=== PATIENT | male | born 1985 | race African-American/Black ===

== ENCOUNTER 2016-09-14 19:51 | Emergency (ER) | payer OTHER ==
[~2016-09-14] VITALS: Ht 177.8 cm; Wt 65.4 kg
[~2016-09-14 19:51] MED LIST: BENTYL10 MG PO; LEXAPRO20 MG PO; NAPROSYN500 MG PO; PROMETHAZINE HC25 M1 PO; TAMIFLU75 MG PO; ZOFRAN4 MG PO
[2016-09-14] MEDS ORDERED: ROBITUSSIN AC,T10 ML PO (21:55)
[2016-09-14 22:18] VITALS: BP 135/81
== END 2016-09-14 22:18 | disposition home or self-care (01) ==
LOC: EME 19:51
DX: J06.9 Acute upper respiratory infection, unspecified (principal); J45.909 Unspecified asthma, uncomplicated; F17.200 Nicotine dependence, unspecified, uncomplicated; Q67.6 Pectus excavatum
CPT/HCPCS: 71020; 99281; 99283; J8540

== ENCOUNTER 2016-09-17 09:29 | Emergency (ER) | payer OTHER ==
[~2016-09-17] VITALS: Ht 175.3 cm; Wt 64.6 kg
[~2016-09-17 09:29] MED LIST changes: +ROBITUSSIN AC,T10 ML PO
[2016-09-17 12:25] LABS: HBSG INDEX 0.15
[2016-09-17 12:26] LABS: HIV INDEX 0.09; HIV-1/2 AB/AG COMBO Nonreactive; HPCA INDEX 0.58
[2016-09-17] MEDS ORDERED: TRUVADA 133 MG1 EACH PO (12:51)
[2016-09-17] MEDS ORDERED: ISENTRESS400 MG PO (12:51)
[2016-09-17] MEDS ORDERED: AUGMENTIN875 MG PO (12:51)
[2016-09-17] MEDS ORDERED: TYLENOL WITH C1 EACH PO (12:53)
[2016-09-17] MEDS ORDERED: ILOTYCIN1 GM BOTH EYES (12:55)
[2016-09-17 13:40] VITALS: BP 142/88
== END 2016-09-17 13:40 | disposition home or self-care (01) ==
LOC: EME → EDBD 09:29 → EME 09:29
PROVIDERS: Emergency Medicine
DX: H11.33 Conjunctival hemorrhage, bilateral (principal); S41.112A Laceration without foreign body of left upper arm, initial encounter; S00.211A Abrasion of right eyelid and periocular area, initial encounter; S00.212A Abrasion of left eyelid and periocular area, initial encounter; F17.200 Nicotine dependence, unspecified, uncomplicated; Y04.1XXA Assault by human bite, initial encounter; X99.8XXA Assault by other sharp object, initial encounter
CPT/HCPCS: 86703; 86803; 87340; 99281; 99284

== ENCOUNTER 2017-02-06 00:47 | Observation (INO) | payer OTHER ==
[~2017-02-06] VITALS: Ht 177.8 cm; Wt 68.4 kg
[~2017-02-06 00:47] MED LIST changes: +AUGMENTIN875 MG PO; +ILOTYCIN1 GM BOTH EYES; +ISENTRESS400 MG PO; +TRUVADA 133 MG1 EACH PO; +TYLENOL WITH C1 EACH PO
[2017-02-06 02:48] LABS: HEMATOCRIT 40.1 % (38.0-50.0); MCH 26.6 PG (29.0-34.0); MCHC 31.7 G/DL (30.0-36.0); MCV 83.9 FL (86-99); MEAN PLAT.VOLUME 9.4 uM^3 (9.0-12.4); PLATELET COUNT 228 K/uL (156-360); RBC DIS.WIDTH-CV 13.3 % (11.8-14.6); RBC DIS.WIDTH-SD 40.7 % (39-53); RED BLOOD COUNT 4.78 M/uL (4.00-5.50); WHITE BLOOD COUNT 3.5 K/uL (4.1-10.2)
[2017-02-06 03:06] LABS: CHLORIDE 105 mEq/L (99-109); POTASSIUM 3.9 mEq/L (3.7-5.4); SODIUM 139 mEq/L (136-147)
[2017-02-06 03:07] LABS: GLUCOSE 82 mg/dL (70-99)
[2017-02-06 03:09] LABS: ANION GAP 8 MEQ/L (2-14)
[2017-02-06 03:11] LABS: GFR ESTIMATE (CALCULATED) > 59 mL/min/; TROP-I INTERPRETATION NEGATIVE; TROPONIN-I < 0.01 ng/mL (0.0-0.30)
[2017-02-06 03:12] LABS: UREA NITROGEN (BUN) 15 mg/dL (9-23)
[2017-02-06 03:29] LABS: D-DIMER ELISA < 0.15 mg/L FEU (< 0.57)
[2017-02-06 04:00] LABS: EOSINOPHIL (%) 1.4 % (0-5); EOSINOPHIL COUNT 0.1 K/uL (0-0.3); HEMATOLOGY COMMENT 1 SMEAR COMPATIBLE; IMMATURE GRANULOCYTE (%) 0.3 % (0.0-0.7); INSTRUMENT ABS NEUTROPHIL CT 0.8 K/uL; LYMPHOCYTE COUNT 2.1 K/uL (1.0-2.8); MONOCYTE (%) 16.1 % (3-12); MONOCYTE COUNT 0.6 K/uL (0-0.8); NEUTROPHIL (%) 22.1 % (45-76); NEUTROPHIL COUNT 0.8 K/uL (1.8-6.4)
[2017-02-06 07:32] VITALS: BP 119/58
[2017-02-06 11:22] VITALS: BP 105/57
[2017-02-06 12:47] LABS: TROP-I INTERPRETATION NEGATIVE; TROPONIN-I < 0.01 ng/mL (0.0-0.30)
[2017-02-06] MEDS ORDERED: PREDNISONE20 MG PO (14:37)
[2017-02-06] MEDS ORDERED: PROZAC10 MG PO (15:00)
[2017-02-06] MEDS ORDERED: DEPAKOTE ER500 MG PO (15:00)
[2017-02-06] MEDS ORDERED: INDERAL20 MG PO (15:01)
[2017-02-06] MEDS ORDERED: XANAX1 MG PO (15:01)
[2017-02-06] MEDS ORDERED: ABILIFY15 MG PO (15:01)
[2017-02-06 15:32] VITALS: BP 123/59
[2017-02-06] MEDS ORDERED: VENTOLIN HFA18 GM IH (16:30)
[2017-02-06 17:07] LABS: TROP-I INTERPRETATION NEGATIVE; TROPONIN-I < 0.01 ng/mL (0.0-0.30)
== END 2017-02-06 18:00 | disposition home or self-care (01) ==
LOC: EME → EDBD 00:47 → EDOF 05:02 → 5WEST 07:28
PROVIDERS: Emergency Medicine; Hospitalist; Internal Medicine
DX: R07.89 Other chest pain (principal); J06.9 Acute upper respiratory infection, unspecified; J45.909 Unspecified asthma, uncomplicated; F31.9 Bipolar disorder, unspecified
CPT/HCPCS: 71020; 80048; 84484; 85025; 85379; 93005; 94640; 94640 76; 99202; G0378; J7512; J7644

== ENCOUNTER 2017-10-12 01:07 | Emergency (ER) | payer OTHER ==
[~2017-10-12] VITALS: Ht 177.8 cm; Wt 65.0 kg
[~2017-10-12 01:07] MED LIST changes: +ABILIFY15 MG PO; +DEPAKOTE ER500 MG PO; +INDERAL20 MG PO; +PREDNISONE20 MG PO; +PROZAC10 MG PO; +VENTOLIN HFA18 GM IH; +XANAX1 MG PO
[2017-10-12 01:36] LABS: HEMATOCRIT 46.3 % (38.0-50.0); MCH 26.6 PG (29.0-34.0); MCHC 32.4 G/DL (30.0-36.0); MCV 82.2 FL (86-99); PLATELET COUNT 250 K/uL (156-360); RBC DIS.WIDTH-CV 12.7 % (11.8-14.6); RBC DIS.WIDTH-SD 38.5 % (39-53); RED BLOOD COUNT 5.63 M/uL (4.00-5.50); WHITE BLOOD COUNT 3.9 K/uL (4.1-10.2)
[2017-10-12 01:43] LABS: INTER. NORMALIZED RATIO 1.1
[2017-10-12 01:44] LABS: CHLORIDE 103 mEq/L (99-109); POTASSIUM 3.9 mEq/L (3.7-5.4); SODIUM 139 mEq/L (136-147)
[2017-10-12 01:46] LABS: GLUCOSE 73 mg/dL (70-99); PTT 32.4 SEC (25-37)
[2017-10-12 01:50] LABS: CREATININE 1.1 mg/dL (0.6-1.3); GFR ESTIMATE (CALCULATED) > 59 mL/min/ (58.99-99999)
[2017-10-12 01:51] LABS: UREA NITROGEN (BUN) 22 mg/dL (9-23)
[2017-10-12 01:57] LABS: TROP-I INTERPRETATION NEGATIVE; TROPONIN-I < 0.01 ng/mL (0.0-0.30)
[2017-10-12 03:42] LABS: ABS NEUTROPHIL COUNT 0.6; ANISOCYTOSIS 1+; EOSINOPHIL ABS CT 0; MICROCYTOSIS 1+; PLAT.SUFFICIENCY ADEQUATE
[2017-10-12 04:03] LABS: TROP-I INTERPRETATION NEGATIVE; TROPONIN-I < 0.01 ng/mL (0.0-0.30)
[2017-10-12 04:25] VITALS: BP 123/81
== END 2017-10-12 04:34 | disposition home or self-care (01) ==
LOC: EME → EDBD 01:07 → EME 01:07
PROVIDERS: Emergency Medicine
DX: R07.89 Other chest pain (principal); J45.909 Unspecified asthma, uncomplicated; Q67.6 Pectus excavatum; F32.9 Major depressive disorder, single episode, unspecified; F31.9 Bipolar disorder, unspecified; F17.200 Nicotine dependence, unspecified, uncomplicated
CPT/HCPCS: 71045; 80048; 81003; 84484; 85025; 85610; 85730; 93005; 99281; 99285